=== PATIENT | male | born 1960 | race Caucasian/White ===

== ENCOUNTER 2019-05-11 11:39 | Emergency (ER) | payer MEDICAID ==
[~2019-05-11] VITALS: Ht 182.9 cm; Wt 69.9 kg
[2019-05-11 11:46] VITALS: BP 149/86
--- NOTE | 2019-05-11 12:26 | NUR ---
AMBULATORY, BREATHING EVEN AND UNLABORED, NO SOB NOTED. Patient discharged to home in stable condition. Written and verbal after care instructions given. Patient verbalizes understanding of instruction.
== END 2019-05-11 12:27 | disposition home or self-care (01) ==
LOC: ER 11:39
DX: J06.9 Acute upper respiratory infection, unspecified (principal); R68.89 Other general symptoms and signs; I10 Essential (primary) hypertension